=== PATIENT | female | born 1965 | race Caucasian/White ===

== ENCOUNTER 2018-06-27 07:50 | Emergency (ER) | payer BC ==
[2018-06-27] MEDS: LIDOCAINE 1% (MPF) 5 ML VIAL INJ (09:00)
[2018-06-27] MEDS: LIDOCAINE 1% (MDV) 10 ML INJ INJ (09:19)
== END 2018-06-27 09:24 | disposition home or self-care (01) ==
LOC: FTE 07:50
DX: J32.9 Chronic sinusitis, unspecified (principal)
CPT/HCPCS: 10060; 99283-25